=== PATIENT | female | born 1940 | race Caucasian/White ===

== ENCOUNTER 2019-12-17 13:51 | Inpatient (IN) | payer MEDICARE, OTHER ==
[2019-12-17] MEDS ORDERED: Ondansetron 4 MG Tab.DIS PO ONE (14:32)
--- NOTE | 2019-12-17 14:53 | EDM.PDOC ---
<Christiano George - Last Filed: 12/17/19 21:38> ED HPI GENERAL MEDICAL PROBLEM - General Chief Complaint: Abdominal Pain Stated Complaint: ABDOMINAL PAIN/DIARRHEA Time Seen by Provider: 12/17/19 14:19 - Related Data Allergies Allergy/AdvReac Type Severity Reaction Status Date / Time gatifloxacin [From Tequin] Allergy Unknown Rash Verified 12/17/19 22:52 Pzaespy-Euc-Wro Reductase AdvReac Muscle Verified 12/17/19 22:52 Inhibitor Aches Home Meds: Home Meds Latanoprost [Xalatan 0.005% Ophth Soln] 1 drop EYEBOTH BEDTIME 11/15/16 [History ] Pravastatin [Pravachol] 20 mg PO DAILY 10/16/18 [History] amLODIPine Besylate [Norvasc] 2.5 mg PO DAILY 10/16/18 [History] Esomeprazole Magnesium [Nexium] 40 mg PO DAILY 12/17/19 [History] Metoprolol Tartrate [Lopressor] 150 mg PO DAILY 12/17/19 [History] Nortriptyline 10 mg PO BEDTIME 12/17/19 [History] Rivaroxaban [Xarelto] 2.5 mg PO DAILY 12/17/19 [History] Sucralfate [Carafate] 1 gm PO QID 12/17/19 [History] Telmisartan [Micardis] 80 mg PO DAILY 12/17/19 [History] Potassium Chloride 20 meq PO DAILY #30 tablet.er 12/20/19 [Rx] Sulfamethoxazole/Trimethoprim [Bactrim Ds Tablet] 1 each PO BID #14 tablet 12/20 [Rx] Vancomycin 125 mg PO QID #40 cap 12/20/19 [Rx] metroNIDAZOLE [Metronidazole] 500 mg PO Q8H #30 tablet 12/20/19 [Rx] Course - Vital Signs Last Recorded V/S: Last Vital Signs Temp 97.5 F 12/20/19 12:20 Pulse 68 12/20/19 12:20 Resp 20 12/20/19 12:20 BP 128/91 H 12/20/19 12:20 Pulse Ox 96 12/20/19 12:20 - Orders/Labs/Meds Labs: Laboratory Tests 12/17/19 12/17/19 Range/Units 14:48 14:48 WBC 10.15 H (3.98-10.04) K/mm3 RBC 4.92 (3.98-5.22) M/mm3 Hgb 15.6 (11.2-15.7) gm/dl Hct 47.3 H (34.1-44.9) % MCV 96.1 H D (79.4-94.8) fl MCH 31.7 (25.6-32.2) pg MCHC 33.0 (32.2-35.5) g/dl RDW Std Deviation 47.2 H (36.4-46.3) fL Plt Count 167 L (182-369) K/mm3 MPV 10.3 (9.4-12.3) fl Neut % (Auto) 81.5 H (34.0-71.1) % Lymph % (Auto) 10.1 L (19.3-51.7) % [place] % (Auto) 7.4 (4.7-12.5) % Eos % (Auto) 0.5 L (0.7-5.8) Baso % (Auto) 0.3 (0.1-1.2) % Neut # (Auto) 8.27 H (1.56-6.13) K/mm3 Lymph # (Auto) 1.03 L (1.18-3.74) K/mm3 [place] # (Auto) 0.75 H (0.24-0.36) K/mm3 Eos # (Auto) 0.05 (0.04-0.36) K/mm3 Baso # (Auto) 0.03 (0.01-0.08) K/mm3 Sodium 138 (136-145) mEq/L Potassium 3.4 L (3.5-5.1) mEq/L Chloride 99 (98-107) mEq/L Carbon Dioxide 28 (21-32) mEq/L Anion Gap 14.4 (5-15) BUN 19 H (7-18) mg/dL Creatinine 1.3 H (0.55-1.02) mg/dL Est Cr Clr Drug Dosing 31.77 mL/min Estimated GFR (MDRD) 39 (>60) mL/min BUN/Creatinine Ratio 14.6 (14-18) Glucose 127 H (83-115) mg/dL Calcium 9.0 (8.5-10.1) mg/dL Total Bilirubin 0.8 (0.2-1.0) mg/dL AST 14 L (15-37) U/L ALT 22 (14-59) U/L Alkaline Phosphatase 99 (46-116) U/L Total Protein 7.1 (6.4-8.2) g/dl Albumin 3.1 L (3.4-5.0) g/dl Globulin 4.0 gm/dL Albumin/Globulin Ratio 0.8 L (1-2) Meds: Medications Discontinued Medications Generic Name Dose Route Start Last Admin Trade Name Freq PRN Reason Stop Dose Admin Acetaminophen 650 mg 12/17/19 23:04 Tylenol PO Q4H PRN Pain (Mild 1-3)/fever Hydrocodone Bitart/Acetaminophen 1 tab 12/17/19 23:04 12/19/19 21:01 [place] 325-5 Mg PO 1 tab Q4H PRN Administration Pain (moderate 4-6) Amlodipine Besylate 2.5 mg 12/18/19 09:00 12/20/19 08:25 Norvasc PO 2.5 mg DAILY GI Administration Diatrizoate Meglum/Diatrizoate Sod 120 ml 12/17/19 20:03 12/17/19 20:44 Gastrografin 37% PO 12/17/19 20:04 90 ml ONETIME ONE Administration Enoxaparin Sodium 30 mg 12/19/19 09:00 12/19/19 09:05 Lovenox SUBCUT 30 mg Q24H GI Administration Hydromorphone HCl 0.25 mg 12/17/19 17:19 12/17/19 18:21 Dilaudid IVPUSH 12/17/19 17:20 0.25 mg ONETIME ONE Administration Sodium Chloride 1,000 mls @ 999 mls/hr 12/17/19 17:30 12/17/19 18:22 Normal Saline IV 999 mls/hr ONETIME GI Administration Sodium Chloride 100 mls @ 75 mls/hr 12/17/19 20:15 12/17/19 20:44 Normal Saline IV 75 mls/hr ASDIRECTED GI Administration Ceftriaxone Sodium 2 gm/ 100 mls @ 200 mls/hr 12/17/19 21:34 12/17/19 22:53 Sodium Chloride IV 12/17/19 22:03 Not Given ONETIME ONE Metronidazole 500 mg/ Premix 100 mls @ 100 mls/hr 12/17/19 21:34 12/17/19 22: 18 IV 12/17/19 22:33 100 mls/hr ONETIME ONE Administration Ceftriaxone Sodium 2 gm/ 100 mls @ 200 mls/hr 12/17/19 22:12 12/17/19 22:19 Sodium Chloride IV 12/17/19 22:41 200 mls/hr STAT STA Administration Ceftriaxone Sodium 2 gm/ 100 mls @ 200 mls/hr 12/18/19 22:00 12/19/19 21:00 Sodium Chloride IV 200 mls/hr Q24H GI Administration Metronidazole 500 mg/ Premix 100 mls @ 100 mls/hr 12/18/19 06:00 12/20/19 13: 17 IV 100 mls/hr Q8H GI Administration Potassium Chloride 10 meq/ 100 mls @ 100 mls/hr 12/18/19 09:00 12/18/19 14:18 Premix IV 12/18/19 12:59 100 mls/hr Q1H GI Administration Sodium Chloride 1,000 mls @ 50 mls/hr 12/18/19 11:00 12/18/19 10:56 Normal Saline IV 50 mls/hr ASDIRECTED GI Administration Potassium Chloride 10 meq/ 100 mls @ 100 mls/hr 12/19/19 09:00 12/19/19 10:43 Premix IV 12/19/19 10:59 100 mls/hr Q1H GI Administration Magnesium Sulfate 2 gm/ Premix 50 mls @ 25 mls/hr 12/19/19 08:45 12/19/19 09: 00 IV 12/19/19 09:44 25 mls/hr Q1H GI Administration Iopamidol 100 ml 12/17/19 20:03 12/17/19 20:44 Isovue-300 (61%) IVPUSH 12/17/19 20:04 65 ml ONETIME ONE Administration Latanoprost 0 ml 12/18/19 21:00 12/19/19 21:01 Xalatan 0.005% Ophth Soln EYEBOTH 1 drop BEDTIME GI Administration Losartan Potassium 100 mg 12/18/19 09:00 12/18/19 08:12 Cozaar PO 100 mg DAILY GI Administration Melatonin 9 mg 12/17/19 23:07 Melatonin PO BEDTIME PRN Insomnia Metoprolol Tartrate 150 mg 12/18/19 09:00 12/20/19 08:25 Lopressor PO 150 mg DAILY GI Administration Miscellaneous Information 0 ea 12/19/19 09:00 12/20/19 08:27 Remove Patch TRDERM Not Given DAILY GI Nicotine 14 mg 12/18/19 15:15 12/20/19 08:27 Habitrol TRDERM Not Given DAILY GI Nortriptyline HCl 10 mg 12/18/19 21:00 12/19/19 21:01 Nortriptyline PO 10 mg BEDTIME GI Administration Ondansetron HCl 4 mg 12/17/19 14:32 12/17/19 15:21 Zofran Odt PO 12/17/19 14:33 Not Given ONETIME ONE Ondansetron HCl 4 mg 12/17/19 17:18 12/17/19 18:23 Zofran IVPUSH 12/17/19 17:19 4 mg ONETIME ONE Administration Ondansetron HCl 4 mg 12/17/19 23:04 Zofran IV Q4H PRN Nausea/Vomiting Pantoprazole Sodium 40 mg 12/18/19 09:00 12/20/19 08:25 Protonix PO 40 mg DAILY GI Administration Rivaroxaban [Xarelto 0 each 12/18/19 16:00 12/20/19 15:05 ] 2.5 Mg PO Not Given DAILY@1400 [facility] Potassium Chloride 40 meq 12/18/19 08:30 12/18/19 08:11 Klor-Con M20 PO 12/18/19 08:31 40 meq ONETIME ONE Administration Sodium Chloride 10 ml 12/17/19 17:18 12/17/19 18:22 Saline Flush FLUSH 10 ml ASDIRECTED PRN Administration Keep Vein Open Sodium Chloride 10 ml 12/17/19 20:03 12/17/19 20:44 Saline Flush FLUSH 10 ml ONETIME PRN Administration IV FLUSH Sucralfate 1 gm 12/18/19 09:00 12/20/19 12:17 Carafate PO 1 gm QID GI Administration Vancomycin HCl 125 mg 12/18/19 17:00 12/20/19 12:17 Vancomycin PO 12/28/19 17:01 125 mg QID GI Administration - Re-Assessments/Exams Free Text/Narrative Re-Assessment/Exam: 12/17/19 21:[address] Monahan this evening. Awaiting CT to be done. This looks like she is got mild developing diverticulitis with in the descending colon near the junction of the sigmoid. Plain films done earlier were suggestive of an ileus. Case discussed with Dr. [place] who is kind enough to accept the patient the patient will be started on IV Rocephin and Flagyl. Departure - Departure Time of Disposition: 21:42 Disposition: Admitted As Inpatient 64 Clinical Impression: Diverticulitis Diarrhea Qualifiers: Diarrhea type: unspecified type Qualified Code(s): R19.7 - Diarrhea, unspecified - Discharge Information Sepsis Event Note - Focused Exam Date Exam was Performed: 12/17/19 Time Exam was Performed: 21:38 <Sae Monahan - Last Filed: 12/22/19 12:44> ED HPI GENERAL MEDICAL PROBLEM - General Source of Information: Reports: Patient, Family, RN Notes Reviewed - History of Present Illness INITIAL COMMENTS - FREE TEXT/NARRATIVE: 79-year-old female has been having quite severe watery diarrhea yesterday and today. Had this off and on for several weeks but yesterday and today has been much worse. Her appetite is diminished but she has been eating in spite of that. There's been no vomiting. She does get intermittent abdominal discomfort upper and lower abdomen. No chest pain or difficulty breathing. She states she has been drinking plenty of water to maintain hydration and had some "red eye last evening to help her sleep" no melena or hematochezia. She is on Pradaxa in addition to her other meds with history of atrial fib. 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; red eye whiskey Abdomen Pain Score (Numeric/FACES): 5 Past Medical History HEENT History: Reports: Glaucoma, Other (See Below) Other HEENT History: weras glasses, dentures Cardiovascular History: Reports: Afib, CAD, High Cholesterol, Hypertension, Other (See Below) Other Cardiovascular History: palpitations Respiratory History: Reports: Other (See Below) Other Respiratory History: lung nodule Gastrointestinal History: Reports: Diverticulosis, Hemorrhoids, Hepatitis, Hiatal Hernia, Other (See Below) Other Gastrointestinal History: diarrhea, hepatomegaly, esophagitis, duodenitis , barretts esphogus, diverticulitis, diverticulosis BUILDING CERTIFIER History: Reports: Other (See Below) Other BUILDING CERTIFIER History: ovarian tumor Musculoskeletal History: Reports: None Neurological History: Reports: None Psychiatric History: Reports: None Endocrine/Metabolic History: Reports: None Hematologic History: Reports: None Immunologic History: Reports: None Oncologic (Cancer) History: Reports: Bladder Dermatologic History: Reports: None - Past Surgical History Head Surgeries/Procedures: Reports: None Respiratory Surgical History: Reports: None GI Surgical History: Reports: Cholecystectomy, Colonoscopy, EGD Female Surgical History: Reports: Section, Hysterectomy, Tubal Ligation Endocrine Surgical History: Reports: None Neurological Surgical History: Reports: None Musculoskeletal Surgical History: Reports: None Oncologic Surgical History: Reports: None Dermatological Surgical History: Reports: None Social & Family History - Tobacco Use Smoking Status *Q: Current Every Day Smoker Years of Tobacco use: 50 Packs/Tins Daily: 0.5 - Caffeine Use Caffeine Use: Reports: Coffee - Recreational Drug Use Recreational Drug Use: No ED ROS GENERAL - Review of Systems Review Of Systems: See Below Constitutional: Denies: Fever, Chills, Diaphoresis HEENT: Reports: No Symptoms Respiratory: Denies: Shortness of Breath Cardiovascular: Denies: Chest Pain GI/Abdominal: Reports: Abdominal Pain, Diarrhea (Occasional mild Requip watery for the past 2 days), Nausea, Vomiting. Denies: Hematochezia, Melena Musculoskeletal: Denies: Back Pain Skin: Reports: No Symptoms Neurological: Reports: Dizziness. Denies: Trouble Speaking (Mild), Difficulty Walking ED EXAM, NEURO - Physical Exam Exam: See Below General Appearance: Alert, No Apparent Distress Nose: Normal Inspection Throat/Mouth: Other Head Exam: Atraumatic (Mucosa mildly dry). No: Facial Swelling Neck: Supple, Full Range of Motion Respiratory/Chest: No Respiratory Distress, Lungs Clear, Normal Breath Sounds Cardiovascular: Regular Rate, Rhythm GI/Abdominal: Soft, Non-Tender (At time of initial exam). No: Guarding, Rebound Neurological: Alert, No Motor/Sensory Deficits Extremities: Normal Inspection, Normal Range of Motion Skin Exam: Warm, Dry, Normal Color Course - Orders/Labs/Meds Labs: Laboratory Tests 12/17/19 12/17/19 Range/Units 14:48 14:48 WBC 10.15 H (3.98-10.04) K/mm3 RBC 4.92 (3.98-5.22) M/mm3 Hgb 15.6 (11.2-15.7) gm/dl Hct 47.3 H (34.1-44.9) % MCV 96.1 H D (79.4-94.8) fl MCH 31.7 (25.6-32.2) pg MCHC 33.0 (32.2-35.5) g/dl RDW Std Deviation 47.2 H (36.4-46.3) fL Plt Count 167 L (182-369) K/mm3 MPV 10.3 (9.4-12.3) fl Neut % (Auto) 81.5 H (34.0-71.1) % Lymph % (Auto) 10.1 L (19.3-51.7) % [place] % (Auto) 7.4 (4.7-12.5) % Eos % (Auto) 0.5 L (0.7-5.8) Baso % (Auto) 0.3 (0.1-1.2) % Neut # (Auto) 8.27 H (1.56-6.13) K/mm3 Lymph # (Auto) 1.03 L (1.18-3.74) K/mm3 [place] # (Auto) 0.75 H (0.24-0.36) K/mm3 Eos # (Auto) 0.05 (0.04-0.36) K/mm3 Baso # (Auto) 0.03 (0.01-0.08) K/mm3 Sodium 138 (136-145) mEq/L Potassium 3.4 L (3.5-5.1) mEq/L Chloride 99 (98-107) mEq/L Carbon Dioxide 28 (21-32) mEq/L Anion Gap 14.4 (5-15) BUN 19 H (7-18) mg/dL Creatinine 1.3 H (0.55-1.02) mg/dL Est Cr Clr Drug Dosing 31.77 mL/min Estimated GFR (MDRD) 39 (>60) mL/min BUN/Creatinine Ratio 14.6 (14-18) Glucose 127 H (83-115) mg/dL Calcium 9.0 (8.5-10.1) mg/dL Total Bilirubin 0.8 (0.2-1.0) mg/dL AST 14 L (15-37) U/L ALT 22 (14-59) U/L Alkaline Phosphatase 99 (46-116) U/L Total Protein 7.1 (6.4-8.2) g/dl Albumin 3.1 L (3.4-5.0) g/dl Globulin 4.0 gm/dL Albumin/Globulin Ratio 0.8 L (1-2) - Re-Assessments/Exams Free Text/Narrative Re-Assessment/Exam: 12/17/19 19:20. At time of initial exam patient did not appear that ill. The history was that of severe frequent watery diarrhea yesterday and today. She down Played any major discomfort. She states she had been eating small amounts of food but then she would have more diarrhea. Labs came back relatively okay. Upright of the abdomen and that however did show multiple air-fluid levels. On reexam she was now having more LLQ pain and tenderness. With that an IV was ordered, she was given 1 L of IV fluid, IV Zofran, 0.25 mg IV Dilaudid. When back to check on her short time ago thinking she would be much better she is having more pain and tenderness left lower quadrant. She states she does have hx of diverticulitis. She states this feels similar. CT of abd/pelvis ordered to be done with IV and oral contrast. It is now past change of shift, will transfer care to Dr. George. Sepsis Event Note - Evaluation Sepsis Screening Result: No Definite Risk - Focused Exam Date Exam was Performed: 12/22/19 Time Exam was Performed: 12:43
[2019-12-17] MEDS ORDERED: Sodium Chloride 0.9% 10 ML Syringe FLUSH PRN ×2 (17:18→20:03)
[2019-12-17] MEDS ORDERED: Ondansetron 4 MG/2 ML SDV IVPUSH ONE (17:18)
[2019-12-17] MEDS ORDERED: HYDROmorphone 0.5 MG/0.5 ML Syringe IVPUSH ONE (17:19)
[2019-12-17] MEDS ORDERED: Sodium Chloride 0.9% 1,000 ML IV SCH (17:30)
--- NOTE | 2019-12-17 17:30 | CR ---
Abdomen: Supine and upright views the abdomen were obtained. Comparison: No previous abdominal x-ray. Scattered gas within small bowel and colon is seen. Air-fluid levels noted within the right colon. These findings can be seen normally. Calcifications are seen within the pelvis compatible phleboliths. Vascular calcification is noted. No free air is seen. Previous cholecystectomy is noted. Bony structures are within normal limits for patient's age. Impression: 1. Mild increased gas within small bowel and colon. This does not appear to be obstructive and may represent excessive swallowed air or a mild ileus. 2. Other findings believed to be incidental as described above. Diagnostic code #2 Study was dictated in [place] Standard Time
[2019-12-17] MEDS ORDERED: Iopamidol 612 MG/ML 100 ML Bottle IVPUSH ONE (20:03)
[2019-12-17] MEDS ORDERED: Diatrizoate Meglumine/Diatrizoate Sodium 37% 120 ML Bottle PO ONE (20:03)
[2019-12-17] MEDS ORDERED: Sodium Chloride 0.9% 100 ML IV SCH (20:15)
--- NOTE | 2019-12-17 21:17 | CT ---
CT abdomen and pelvis Technique: Multiple axial sections were obtained from above the dome of the diaphragm inferiorly through the pubic symphysis. Intravenous and oral contrast was utilized. Delayed images were also obtained through the bladder. Comparison: Prior CT abdomen and pelvis exam of 06/18/19. Findings: Mild inflammatory change is suggested around the descending colon near the junction to the sigmoid colon. This is in an area of diverticulosis and findings are felt compatible with mild diverticulitis. Other diverticuli are seen within the descending and sigmoid colon which show no additional inflammatory change. Visualized lung bases show nothing acute. Liver contains no focal abnormality. Spleen shows no focal abnormality. Adrenal glands show no nodule. Kidneys show contrast enhancement without hydronephrosis or mass. Pancreas shows no focal abnormality. Surgical clips are seen from prior cholecystectomy. Minimal intrahepatic biliary duct dilatation is seen which is felt to relate to the prior cholecystectomy. Aorta shows atherosclerotic calcification without aneurysmal dilatation. Small hiatal hernia is noted. No retroperitoneal adenopathy or mesenteric abnormalities are seen. No pelvic mass or adenopathy is identified. Appendix is not visualized with certainty. Bone window settings were reviewed which shows mild degenerative change scattered within the spine. Several mild endplate concavities are seen within the thoracic spine which are old. Impression: 1. Findings which are felt compatible with mild diverticulitis within the descending colon near the junction to the sigmoid colon. 2. Other findings as noted above which are felt to be nonacute and incidental. Diagnostic code #3 Study was dictated in [place] Standard Time
[2019-12-17] MEDS ORDERED: metroNIDAZOLE/Normal Saline 500 MG in Premix Bag 1 BAG IV ONE (21:34)
[2019-12-17] MEDS ORDERED: cefTRIAXone 2 GM in Sodium Chloride 0.9% 100 ML IV ONE (21:34)
[2019-12-17] MEDS ORDERED: cefTRIAXone 2 GM in Sodium Chloride 0.9% 100 ML IV STA (22:12)
[2019-12-17] MEDS ORDERED: Acetaminophen 325 MG Tab PO PRN (23:04)
[2019-12-17] MEDS ORDERED: Ondansetron 4 MG/2 ML SDV IV PRN (23:04)
[2019-12-17] MEDS ORDERED: Melatonin 3 MG Tab PO PRN (23:07)
[2019-12-18] MEDS: metroNIDAZOLE/Normal Saline 500 MG in Premix Bag 1 BAG IV SCH ×3 (05:52→21:33)
[2019-12-18] MEDS ORDERED: Potassium Chloride 10 MEQ in Premix Bag 1 BAG IV SCH (07:15)
--- NOTE | 2019-12-18 07:56 | PCM.HP.2 ---
Addendum entered and electronically signed by Jefe William PA-C 12/18/19 15:27 : C. difficile returned positive. Will start vancomycin. Original Note: H&P History of Present Illness - General Date of Service: 12/18/19 Admit Problem/Dx: Admission Diagnosis/Problem Admission Diagnosis/Problem Diverticulitis Source of Information: Patient, Old Records, Provider, RN, RN Notes Reviewed History Limitations: Reports: No Limitations - History of Present Illness Initial Comments - Free Text/Narative: Brisa Bolanos is an 79-year-old female who presented to ED in the afternoon of 12/17/2019 with watery diarrhea which has increased in severity over the past few days. She reports she has been having these symptoms for several weeks but as noted it has gotten worse. States her appetite has been lacking but she has been attempting to eat regardless. Denies any nausea or vomiting. Reports upper and lower abdominal discomfort but denies chest pain, difficulty breathing, melena, hematochezia. States has been drinking lots of water and did have some alcohol last night to try to help her sleep. In the ED temp was 36.9 Celsius. Pulse 89. Respirations 20. Blood pressure 146/97. Pulse ox 97%. Labs were obtained showing a mild leukocytosis at 10.15. Hemoglobin is good at 15.6. Hematocrit good at 47.3. She is macrocytic. Platelets are low at 106 7000. Neutrophils are elevated at 81.5%. Sodium is on the low end of normal at 138. Potassium is just slightly low at 3.4. Chloride 99. Carbon oxide 28. Anion gap is good at 14.4. BUN is high at 19. Creatinine high at 1.3. GFR is low at 39. Glucose is high at 127. Calcium 9.0. Bilirubin 0.8. AST is 14, ALT 22, alkaline phosphatase 99. Albumin is low at 3.1. Abdominal x-ray is obtained and interpreted by Dr. Vo as "1. Mild increased gas within small bowel and colon. This does not appear to be obstructive and may represent excessive swallowed air or mild ileus. 2. Other findings believed to be incidental as described above." Abdominal CT is been obtained and interpreted by Dr. Vo as "1. Findings which are felt compatible with mild diverticulosis within the descending colon near the junction of the sigmoid colon. 2. Other findings as noted above which are felt to be nonacute and incidental. " She was given a 1 L fluid bolus and started on 2 g IV ceftriaxone and 500 mg metronidazole. She is also given 4 mg IV push Zofran and 0.25 mg Dilaudid for pain. She carries a history of glaucoma, A. fib, CAD, HLD, hypertension, palpitations , lung nodule, diverticulosis, hemorrhoids, hepatitis, hiatal hernia, diarrhea, hepatomegaly, esophagitis, duodenitis, Bradford's esophagus, diverticulitis, diverticulosis, ovarian tumor, bladder cancer. She is a daily smoker. She is a DNR/DNI. Her PCP is Dr. Chinchilla. She is subsequently admitted to the medical floor on telemetry for management of her diverticulitis and hypokalemia. Abdomen Pain Score (Numeric/FACES): 5 - Related Data Allergies/Adverse Reactions: Allergies Allergy/AdvReac Type Severity Reaction Status Date / Time gatifloxacin [From Tequin] Allergy Unknown Rash Verified 12/17/19 22:52 Ackflqw-Yja-Kyi Reductase AdvReac Muscle Verified 12/17/19 22:52 Inhibitor Aches Home Medications: Home Meds Latanoprost [Xalatan 0.005% Ophth Soln] 1 drop EYEBOTH BEDTIME 11/15/16 [History ] Pravastatin [Pravachol] 20 mg PO DAILY 10/16/18 [History] amLODIPine Besylate [Norvasc] 2.5 mg PO DAILY 10/16/18 [History] Esomeprazole Magnesium [Nexium] 40 mg PO DAILY 12/17/19 [History] Metoprolol Tartrate [Lopressor] 150 mg PO DAILY 12/17/19 [History] Nortriptyline 10 mg PO BEDTIME 12/17/19 [History] Rivaroxaban [Xarelto] 2.5 mg PO DAILY 12/17/19 [History] Sucralfate [Carafate] 1 gm PO QID 12/17/19 [History] Telmisartan [Micardis] 80 mg PO DAILY 12/17/19 [History] Potassium Chloride [Klor-Con M20] 20 meq PO DAILY 12/18/19 [History] Past Medical History HEENT History: Reports: Glaucoma, Other (See Below) Other HEENT History: wears glasses, dentures Cardiovascular History: Reports: Afib, CAD, High Cholesterol, Hypertension, Other (See Below) Other Cardiovascular History: palpitations Respiratory History: Reports: Other (See Below) Other Respiratory History: lung nodule Gastrointestinal History: Reports: Diverticulosis, Hemorrhoids, Hepatitis, Hiatal Hernia, Other (See Below) Other Gastrointestinal History: diarrhea, hepatomegaly, esophagitis, duodenitis , barretts esphogus, diverticulitis Genitourinary History: Reports: Other (See Below) Other Genitourinary History: bladder cancer 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 History: Reports: Other (See Below) Other OB/BYN History: ovarian tumor Musculoskeletal History: Reports: None Neurological History: Reports: None Psychiatric History: Reports: None Endocrine/Metabolic History: Reports: None Hematologic History: Reports: None Immunologic History: Reports: None Oncologic (Cancer) History: Reports: Bladder Dermatologic History: Reports: None - Infectious Disease History Infectious Disease History: Reports: Hepatitis B - Past Surgical History Head Surgeries/Procedures: Reports: None HEENT Surgical History: Reports: None Cardiovascular Surgical History: Reports: None Respiratory Surgical History: Reports: None GI Surgical History: Reports: Appendectomy, Cholecystectomy, Colonoscopy, EGD Female Surgical History: Reports: Section, Hysterectomy, Tubal Ligation Endocrine Surgical History: Reports: None Neurological Surgical History: Reports: None Musculoskeletal Surgical History: Reports: None Oncologic Surgical History: Reports: None Dermatological Surgical History: Reports: None Social & Family History - Family History Family Medical History: Noncontributory - Tobacco Use Smoking Status *Q: Current Every Day Smoker Years of Tobacco use: 50 Packs/Tins Daily: 0.5 Used Tobacco, but Quit: No Tobacco Use Comment: Patient refused nicotine patch - Caffeine Use Caffeine Use: Reports: Coffee - Recreational Drug Use Recreational Drug Use: No H&P Review of Systems - Review of Systems: Review Of Systems: See Below General: Reports: No Symptoms. Denies: Fever, Chills, Malaise, Weakness, Fatigue HEENT: Reports: No Symptoms. Denies: Headaches, Rhinitis Pulmonary: Reports: No Symptoms. Denies: Shortness of Breath, Wheezing, Cough, Sputum Cardiovascular: Reports: No Symptoms. Denies: Chest Pain, Palpitations, Dyspnea on Exertion Gastrointestinal: Reports: Abdominal Pain (LLQ ), Diarrhea (Reports diarrhea for past few weeks. Had oral contrast prior to admission as well. ). Denies: Constipation, Distension, Hematemesis, Hematochezia, Melena, Nausea, Vomiting Genitourinary: Reports: No Symptoms. Denies: Dysuria, Pain, Urgency, Incontinence, Retention Musculoskeletal: Reports: Shoulder Pain (Chronic right - warming pack ordered ) Skin: Reports: No Symptoms. Denies: Cyanosis Psychiatric: Reports: No Symptoms. Denies: Confusion Neurological: Reports: No Symptoms. Denies: Pre-Existing Deficit Hematologic/Lymphatic: Reports: No Symptoms Immunologic: Reports: No Symptoms Exam - Exam Exam: See Below - Vital Signs Vital Signs: Last Vital Signs Temp 99.0 F 12/18/19 05:49 Pulse 87 12/18/19 05:49 Resp 20 12/18/19 05:49 BP 124/92 H 12/18/19 05:49 Pulse Ox 91 L 12/18/19 05:49 Weight: 173 lb 9.6 oz - Exam Quality Assessment: DVT Prophylaxis. No: Supplemental Oxygen, Urinary Catheter General: Alert, Oriented, Cooperative. No: Mild Distress HEENT: Conjunctiva Clear, EACs Clear, Hearing Intact, Mucosa Moist & [place], Nares Patent, Posterior Pharynx Clear Neck: Supple, Trachea Midline Lungs: Clear to Auscultation, Normal Respiratory Effort Cardiovascular: Regular Rate, Irregular Rhythm (A-fib) GI/Abdominal Exam: Normal Bowel Sounds, Soft, Non-Tender, No Distention (Female) Exam: Deferred Rectal (Female) Exam: Deferred Back Exam: Normal Inspection, Full Range of Motion Extremities: Normal Inspection, Normal Range of Motion, Non-Tender, No Pedal Edema, Normal Capillary Refill Peripheral Pulses: 2+: Radial (L), Radial (R), Dorsalis Pedis (L), Dorsalis Pedis (R) Skin: Warm, Dry, Intact Neurological: Cranial Nerves Intact (Grossly ) Neuro Extensive - Mental Status: Alert, Oriented x3, Normal Mood/Affect - Patient Data Lab Results Last 24 hrs: Laboratory Results - last 24 hr 12/17/19 12/17/19 12/18/19 Range/Units 14:48 14:48 05:45 WBC 10.15 H 6.99 (3.98-10.04) K/mm3 RBC 4.92 4.39 (3.98-5.22) M/mm3 Hgb 15.6 14.0 D (11.2-15.7) gm/dl Hct 47.3 H 42.1 (34.1-44.9) % MCV 96.1 H D 95.9 H (79.4-94.8) fl MCH 31.7 31.9 (25.6-32.2) pg MCHC 33.0 33.3 (32.2-35.5) g/dl RDW Std Deviation 47.2 H 46.1 (36.4-46.3) fL Plt Count 167 L 136 L (182-369) K/mm3 MPV 10.3 10.3 (9.4-12.3) fl Neut % (Auto) 81.5 H 72.0 H (34.0-71.1) % Lymph % (Auto) 10.1 L 17.7 L (19.3-51.7) % [place] % (Auto) 7.4 9.0 (4.7-12.5) % Eos % (Auto) 0.5 L 0.7 (0.7-5.8) Baso % (Auto) 0.3 0.3 (0.1-1.2) % Neut # (Auto) 8.27 H 5.03 (1.56-6.13) K/mm3 Lymph # (Auto) 1.03 L 1.24 (1.18-3.74) K/mm3 [place] # (Auto) 0.75 H 0.63 H (0.24-0.36) K/mm3 Eos # (Auto) 0.05 0.05 (0.04-0.36) K/mm3 Baso # (Auto) 0.03 0.02 (0.01-0.08) K/mm3 Sodium 138 (136-145) mEq/L Potassium 3.4 L (3.5-5.1) mEq/L Chloride 99 (98-107) mEq/L Carbon Dioxide 28 (21-32) mEq/L Anion Gap 14.4 (5-15) BUN 19 H (7-18) mg/dL Creatinine 1.3 H (0.55-1.02) mg/dL Est Cr Clr Drug Dosing 31.77 mL/min Estimated GFR (MDRD) 39 (>60) mL/min BUN/Creatinine Ratio 14.6 (14-18) Glucose 127 H (83-115) mg/dL Calcium 9.0 (8.5-10.1) mg/dL Magnesium (1.8-2.4) mg/dl Total Bilirubin 0.8 (0.2-1.0) mg/dL AST 14 L (15-37) U/L ALT 22 (14-59) U/L Alkaline Phosphatase 99 (46-116) U/L Total Protein 7.1 (6.4-8.2) g/dl Albumin 3.1 L (3.4-5.0) g/dl Globulin 4.0 gm/dL Albumin/Globulin Ratio 0.8 L (1-2) 12/18/19 Range/Units 05:45 WBC (3.98-10.04) K/mm3 RBC (3.98-5.22) M/mm3 Hgb (11.2-15.7) gm/dl Hct (34.1-44.9) % MCV (79.4-94.8) fl MCH (25.6-32.2) pg MCHC (32.2-35.5) g/dl RDW Std Deviation (36.4-46.3) fL Plt Count (182-369) K/mm3 MPV (9.4-12.3) fl Neut % (Auto) (34.0-71.1) % Lymph % (Auto) (19.3-51.7) % [place] % (Auto) (4.7-12.5) % Eos % (Auto) (0.7-5.8) Baso % (Auto) (0.1-1.2) % Neut # (Auto) (1.56-6.13) K/mm3 Lymph # (Auto) (1.18-3.74) K/mm3 [place] # (Auto) (0.24-0.36) K/mm3 Eos # (Auto) (0.04-0.36) K/mm3 Baso # (Auto) (0.01-0.08) K/mm3 Sodium 139 (136-145) mEq/L Potassium 2.9 L (3.5-5.1) mEq/L Chloride 102 (98-107) mEq/L Carbon Dioxide 27 (21-32) mEq/L Anion Gap 12.9 (5-15) BUN 13 (7-18) mg/dL Creatinine 0.8 (0.55-1.02) mg/dL Est Cr Clr Drug Dosing 51.63 mL/min Estimated GFR (MDRD) > 60 (>60) mL/min BUN/Creatinine Ratio 16.3 (14-18) Glucose 97 (83-115) mg/dL Calcium 8.8 (8.5-10.1) mg/dL Magnesium 1.8 (1.8-2.4) mg/dl Total Bilirubin 0.6 (0.2-1.0) mg/dL AST 15 (15-37) U/L ALT 15 (14-59) U/L Alkaline Phosphatase 83 (46-116) U/L Total Protein 6.5 (6.4-8.2) g/dl Albumin 2.8 L (3.4-5.0) g/dl Globulin 3.7 gm/dL Albumin/Globulin Ratio 0.8 L (1-2) Result Diagrams: 12/18/19 05:45 12/18/19 05:45 Sepsis Event Note - Evaluation Sepsis Screening Result: No Definite Risk - Focused Exam Vital Signs: Vital Signs Temp Pulse Resp BP Pulse Ox 12/18/19 05:49 99.0 F 87 20 124/92 H 91 L 12/17/19 22:32 97.9 F 82 18 120/67 96 Date Exam was Performed: 12/18/19 Time Exam was Performed: 14:59 - Problem List (1) Diarrhea SNOMED Code(s): 85407153 ICD Code: R19.7 - DIARRHEA, UNSPECIFIED Status: Acute Priority: High Current Visit: Yes Qualifiers: Diarrhea type: unspecified type Qualified Code(s): R19.7 - Diarrhea, unspecified (2) Diverticulitis SNOMED Code(s): 175526606 ICD Code: K57.92 - DVTRCLI OF INTEST, PART UNSP, W/O PERF OR ABSCESS W/O BLEED Status: Acute Priority: High Current Visit: Yes (3) Abdominal pain SNOMED Code(s): 84590977 ICD Code: R10.9 - UNSPECIFIED ABDOMINAL PAIN Status: Acute Priority: High Current Visit: Yes Qualifiers: Abdominal location: left lower quadrant Qualified Code(s): R10.32 - Left lower quadrant pain (4) Bradford's esophagus with dysplasia, unspecified SNOMED Code(s): 8350012953438991 ICD Code: K22.719 - BRADFORD'S ESOPHAGUS WITH DYSPLASIA, UNSPECIFIED Status : Chronic Priority: Low Current Visit: No (5) A-fib SNOMED Code(s): 29778148 ICD Code: I48.91 - UNSPECIFIED ATRIAL FIBRILLATION Status: Chronic Priority: Medium Current Visit: Yes Qualifiers: Atrial fibrillation type: unspecified persistent Qualified Code(s): I48.19 - Other persistent atrial fibrillation; I48.1 - Persistent atrial fibrillation (6) CAD (coronary artery disease) SNOMED Code(s): 46142566 ICD Code: I25.10 - ATHSCL HEART DISEASE OF [place] CORONARY ARTERY W/O ANG PCTRS Status: Chronic Priority: Medium Current Visit: No Qualifiers: Coronary Disease-Associated Artery/Lesion type: [place] artery [place] vs. transplanted heart: [place] heart Associated angina: angina presence unspecified Qualified Code(s): I25.10 - Atherosclerotic heart disease of [place] coronary artery without angina pectoris (7) HLD (hyperlipidemia) SNOMED Code(s): 89111876 ICD Code: E78.5 - HYPERLIPIDEMIA, UNSPECIFIED Status: Chronic Priority: Low Current Visit: No Qualifiers: Hyperlipidemia type: unspecified Qualified Code(s): E78.5 - Hyperlipidemia , unspecified (8) HTN (hypertension) SNOMED Code(s): 49755038 ICD Code: I10 - ESSENTIAL (PRIMARY) HYPERTENSION Status: Chronic Priority : Medium Current Visit: No Qualifiers: Hypertension type: unspecified Qualified Code(s): I10 - Essential (primary ) hypertension (9) Palpitations SNOMED Code(s): 15200824 ICD Code: R00.2 - PALPITATIONS Status: Chronic Priority: Low Current Visit: No (10) Lung nodule SNOMED Code(s): 918390645 ICD Code: R91.1 - SOLITARY PULMONARY NODULE Status: Chronic Priority: Low Current Visit: No (11) Hemorrhoids SNOMED Code(s): 63224145 ICD Code: K64.9 - UNSPECIFIED HEMORRHOIDS Status: Resolved Priority: Low Current Visit: No Qualifiers: Hemorrhoid type: unspecified Qualified Code(s): K64.9 - Unspecified hemorrhoids (12) History of hepatitis SNOMED Code(s): 191729030 ICD Code: Z86.19 - PERSONAL HISTORY OF OTHER INFECTIOUS AND PARASITIC DISEASES Status: Chronic Priority: Low Current Visit: No (13) History of hiatal hernia SNOMED Code(s): 256837113 ICD Code: Z87.19 - PERSONAL HISTORY OF OTHER DISEASES OF THE DIGESTIVE SYSTEM Status: Chronic Priority: Low Current Visit: No (14) Ovarian tumor SNOMED Code(s): 566700590 ICD Code: D49.59 - NEOPLASM OF UNSPECIFIED BEHAVIOR OF OTHER ORGAN Status: Chronic Priority: Medium Current Visit: Yes (15) History of bladder cancer SNOMED Code(s): 158983011, 078845975 ICD Code: Z85.51 - PERSONAL HISTORY OF MALIGNANT NEOPLASM OF BLADDER Status : Chronic Priority: Low Current Visit: No (16) Glaucoma SNOMED Code(s): 37606840 ICD Code: H40.9 - UNSPECIFIED GLAUCOMA Status: Chronic Priority: Low Current Visit: No Qualifiers: Glaucoma type: unspecified Laterality: unspecified laterality Qualified Code(s): H40.9 - Unspecified glaucoma (17) Tobacco use SNOMED Code(s): 489003202 ICD Code: Z72.0 - TOBACCO USE Status: Chronic Priority: Medium Current Visit: Yes Problem List Initiated/Reviewed/Updated: Yes Orders Last 24hrs: Active Orders 24 hr Category Date Time Status Patient Status [ADT] Routine ADT 12/17/19 23:23 Active Oxygen Therapy [RC] PRN Care 12/17/19 23:04 Active Up With Assistance [RC] BID Care 12/17/19 23:04 Active VTE/DVT Education [RC] DAILY Care 12/17/19 23:04 Active Vital Signs [RC] Q4HR Care 12/17/19 23:04 Active Full Liquid Diet [DIET] Diet 12/18/19 Breakfast Active CBC WITH AUTO DIFF [HEME] AM Lab 12/19/19 05:11 Ordered CBC WITH AUTO DIFF [HEME] AM Lab 12/20/19 05:11 Ordered CBC WITH AUTO DIFF [HEME] AM Lab 12/21/19 05:11 Ordered COMPREHENSIVE METABOLIC PN,CMP [CHEM] AM Lab 12/19/19 05:11 Ordered COMPREHENSIVE METABOLIC PN,CMP [CHEM] AM Lab 12/20/19 05:11 Ordered COMPREHENSIVE METABOLIC PN,CMP [CHEM] AM Lab 12/21/19 05:11 Ordered MAGNESIUM [CHEM] AM Lab 12/19/19 05:11 Ordered MAGNESIUM [CHEM] AM Lab 12/20/19 05:11 Ordered MAGNESIUM [CHEM] AM Lab 12/21/19 05:11 Ordered MAGNESIUM [CHEM] AM Lab 12/22/19 05:11 Ordered Acetaminophen [Tylenol] Med 12/17/19 23:04 Active 650 mg PO Q4H PRN Acetaminophen/HYDROcodone [[place] 325-5 MG] Med 12/17/19 23:04 Active 1 tab PO Q4H PRN Latanoprost [Xalatan 0.005% Ophth Soln] Med 12/18/19 21:00 Active 0 ml EYEBOTH BEDTIME Losartan [Cozaar] Med 12/18/19 09:00 Hold 100 mg PO DAILY Melatonin Med 12/17/19 23:07 Active 9 mg PO BEDTIME PRN Metoprolol Tartrate [Lopressor] Med 12/18/19 09:00 Active 150 mg PO DAILY Nortriptyline Med 12/18/19 21:00 Active 10 mg PO BEDTIME Ondansetron [Zofran] Med 12/17/19 23:04 Active 4 mg IV Q4H PRN Pantoprazole [ProTONIX] Med 12/18/19 09:00 Active 40 mg PO DAILY Potassium Chloride [KCl 10 MEQ in Water 100 ML] 10 meq Med 12/18/19 07:15 Active Premix Bag 1 bag IV Q1H Rivaroxaban [Xarelto] Med 12/18/19 09:00 Pending 2.5 mg PO DAILY Sodium Chloride 0.9% [Saline Flush] Med 12/17/19 17:18 Active 10 ml FLUSH ASDIRECTED PRN Sodium Chloride 0.9% [Saline Flush] Med 12/17/19 20:03 Active 10 ml FLUSH ONETIME PRN Sucralfate [Carafate] Med 12/18/19 09:00 Active 1 gm PO QID amLODIPine [Norvasc] Med 12/18/19 09:00 Active 2.5 mg PO DAILY cefTRIAXone [Rocephin] 2 gm Med 12/18/19 22:00 Active Sodium Chloride 0.9% [Normal Saline] 100 ml IV Q24H metroNIDAZOLE/Normal Saline [Flagyl 500 MG in NS 100 ML Med 12/18/19 06:00 Active ] 500 mg Premix Bag 1 bag IV Q8H Peripheral IV Insertion Adult [OM.PC] Stat Oth 12/17/19 17:18 Ordered Resuscitation Status Routine Resus Stat 12/17/19 23:04 Ordered Medication Orders Acetaminophen (Tylenol) 650 mg PO Q4H PRN PRN Reason: Pain (Mild 1-3)/fever Hydrocodone Bitart/Acetaminophen ([place] 325-5 Mg) 1 tab PO Q4H PRN PRN Reason: Pain (moderate 4-6) Amlodipine Besylate (Norvasc) 2.5 mg PO DAILY [facility] Ceftriaxone Sodium 2 gm/ (Sodium Chloride) 100 mls @ 200 mls/hr IV Q24H [facility] Metronidazole 500 mg/ Premix 100 mls @ 100 mls/hr IV Q8H [facility] Last Admin: 12/18/19 05:52 Dose: 100 mls/hr Potassium Chloride 10 meq/ (Premix) 100 mls @ 100 mls/hr IV Q1H [facility] Stop: 12/18/19 13:14 Latanoprost (Xalatan 0.005% Ophth Soln) 0 ml EYEBOTH BEDTIME [facility] Losartan Potassium (Cozaar) 100 mg PO DAILY [facility] Melatonin (Melatonin) 9 mg PO BEDTIME PRN PRN Reason: Insomnia Metoprolol Tartrate (Lopressor) 150 mg PO DAILY [facility] Non-Formulary Medication (Rivaroxaban [Xarelto]) 2.5 mg PO DAILY [facility] Nortriptyline HCl (Nortriptyline) 10 mg PO BEDTIME [facility] Ondansetron HCl (Zofran) 4 mg IV Q4H PRN PRN Reason: Nausea/Vomiting Pantoprazole Sodium (Protonix) 40 mg PO DAILY [facility] Sodium Chloride (Saline Flush) 10 ml FLUSH ASDIRECTED PRN PRN Reason: Keep Vein Open Last Admin: 12/17/19 18:22 Dose: 10 ml Sodium Chloride (Saline Flush) 10 ml FLUSH ONETIME PRN PRN Reason: IV FLUSH Last Admin: 12/17/19 20:44 Dose: 10 ml Sucralfate (Carafate) 1 gm PO QID [facility] Assessment/Plan Comment:: I/P: Acute: Diverticulitis -Carries history of diverticula/diverticulitis -Reports watery diarrhea with diminished appetite and abdominal pain -Abdominal x-ray shows increased bowel gas and possible mild ileus. -Abdominal CT shows diverticulitis, mild, near the junction of descending and sigmoid colon. -Afebrile with minimal leukocytosis. -1 L IV fluid bolus given in ED. -Started on 2 g IV Rocephin and 500 mg metronidazole in ED - Continue -Ambulate -Clear liquid diet, advance as tolerated. Diarrhea -Reports worsening diarrhea over the past few days -No history of C. difficile infection -Reports diarrhea has been present for several weeks -Check C. difficile -Contact precautions until C. difficile results return -If negative C. difficile consider Imodium Hypokalemia -Potassium 3.4 in the ED; Now 2.9 -Likely worsened by diarrhea -Supplement Tobacco use disorder -Cessation counseling -Nicotine patch as ordered Right shoulder pain -Reports ongoing issue -Heat pack ordered Chronic: Glaucoma A. fib CAD HLD hypertension palpitations lung nodul diverticulosis hemorrhoids hepatitis hiatal hernia hepatomegaly esophagitis duodenitis Bradford's esophagus ovarian tumor bladder cancer Plan: Admit to medical floor on telemetry Other orders as indicated above Home medications as ordered PT/OT Routine AM labs DVT prophylaxis: Home Eliquis Code status: DNR/DNI PCP: Dr. Chinchilla - Mortality Measure Prognosis:: Good
[2019-12-18] MEDS: amLODIPine 2.5 MG Tab PO SCH (08:10)
[2019-12-18] MEDS: Acetaminophen/HYDROcodone 325-5 MG Tab PO PRN ×2 (08:11→21:34)
[2019-12-18] MEDS: Metoprolol Tartrate 50 MG Tab PO SCH (08:11)
[2019-12-18] MEDS: Sucralfate Suspension 1 GM/10 ML Cup PO SCH ×4 (08:12→21:34)
[2019-12-18] MEDS: Pantoprazole 40 MG Tab.CR PO SCH (08:12)
[2019-12-18] MEDS: Potassium Chloride 10 MEQ in Premix Bag 1 BAG IV SCH ×4 (08:15→14:18)
[2019-12-18] MEDS ORDERED: Potassium Chloride 20 MEQ Tab.ER PO ONE (08:30)
[2019-12-18] MEDS ORDERED: Losartan 100 MG Tab PO SCH (09:00)
[2019-12-18] MEDS ORDERED: Sodium Chloride 0.9% 1,000 ML IV SCH (11:00)
[2019-12-18] MEDS: Nicotine 14 MG/24 Hr Patch TRDERM SCH (15:42)
[2019-12-18] MEDS: Vancomycin 125 MG Cap PO SCH ×2 (16:14→21:33)
[2019-12-18] MEDS: RIVAROXABAN 2.5 MG PO SCH (16:14)
[2019-12-18] MEDS: cefTRIAXone 2 GM in Sodium Chloride 0.9% 100 ML IV SCH (21:32)
[2019-12-18] MEDS: Latanoprost 0.005% Ophth Soln 2.5 ML Bottle EYEBOTH SCH (21:33)
[2019-12-18] MEDS: Nortriptyline 10 MG Cap PO SCH (21:34)
[2019-12-19] MEDS: metroNIDAZOLE/Normal Saline 500 MG in Premix Bag 1 BAG IV SCH ×3 (05:19→21:00)
[2019-12-19] MEDS: amLODIPine 2.5 MG Tab PO SCH (08:13)
[2019-12-19] MEDS: Vancomycin 125 MG Cap PO SCH ×4 (08:13→21:01)
[2019-12-19] MEDS: Pantoprazole 40 MG Tab.CR PO SCH (08:13)
[2019-12-19] MEDS: Metoprolol Tartrate 50 MG Tab PO SCH (08:14)
[2019-12-19] MEDS: Nicotine 14 MG/24 Hr Patch TRDERM SCH (08:15)
[2019-12-19] MEDS: Sucralfate Suspension 1 GM/10 ML Cup PO SCH ×4 (08:15→21:01)
[2019-12-19] MEDS ORDERED: Magnesium Sulfate/Water 2 GM in Premix Bag 1 BAG IV SCH (08:45)
[2019-12-19] MEDS ORDERED: Enoxaparin 30 MG/0.3 ML Syringe SUBCUT SCH (09:00)
[2019-12-19] MEDS: Potassium Chloride 10 MEQ in Premix Bag 1 BAG IV SCH ×2 (09:01→10:43)
[2019-12-19] MEDS: RIVAROXABAN 2.5 MG PO SCH (13:35)
--- NOTE | 2019-12-19 13:58 | PCM.PN ---
- General Info Date of Service: 12/19/19 Admission Dx/Problem (Free Text): Admission Diagnosis/Problem Admission Diagnosis/Problem Diverticulitis Subjective Update: Patient states that she is doing better, did not have a bowel movement this morning, and only 1 last night. Unfortunately, she continues to have left lower quadrant pain. - Review of Systems General: Reports: No Symptoms HEENT: Reports: No Symptoms Pulmonary: Reports: No Symptoms Cardiovascular: Reports: No Symptoms Gastrointestinal: Reports: Abdominal Pain Musculoskeletal: Reports: No Symptoms - Patient Data Vitals - Most Recent: Last Vital Signs Temp 97.9 F 12/19/19 12:15 Pulse 73 12/19/19 12:15 Resp 16 12/19/19 12:15 BP 120/78 12/19/19 12:15 Pulse Ox 98 12/19/19 12:15 Weight - Most Recent: 176 lb 11.2 oz I&O - Last 24 Hours: Intake & Output 12/18/19 12/19/19 12/19/19 22:59 06:59 14:59 Intake Total 2050 1400 200 Output Total 400 1400 Balance 1650 0 200 Lab Results Last 24 Hours: Laboratory Results - last 24 hr 12/18/19 12/18/19 12/19/19 Range/Units 14:20 16:10 05:44 WBC 4.70 (3.98-10.04) K/mm3 RBC 4.23 (3.98-5.22) M/mm3 Hgb 13.3 (11.2-15.7) gm/dl Hct 41.0 (34.1-44.9) % MCV 96.9 H (79.4-94.8) fl MCH 31.4 (25.6-32.2) pg MCHC 32.4 (32.2-35.5) g/dl RDW Std Deviation 46.9 H (36.4-46.3) fL Plt Count 129 L (182-369) K/mm3 MPV 10.4 (9.4-12.3) fl Neut % (Auto) 58.7 (34.0-71.1) % Lymph % (Auto) 27.9 (19.3-51.7) % [place] % (Auto) 10.0 (4.7-12.5) % Eos % (Auto) 2.6 (0.7-5.8) Baso % (Auto) 0.6 (0.1-1.2) % Neut # (Auto) 2.76 (1.56-6.13) K/mm3 Lymph # (Auto) 1.31 (1.18-3.74) K/mm3 [place] # (Auto) 0.47 H (0.24-0.36) K/mm3 Eos # (Auto) 0.12 (0.04-0.36) K/mm3 Baso # (Auto) 0.03 (0.01-0.08) K/mm3 Sodium (136-145) mEq/L Potassium 4.6 D (3.5-5.1) mEq/L Chloride (98-107) mEq/L Carbon Dioxide (21-32) mEq/L Anion Gap (5-15) BUN (7-18) mg/dL Creatinine (0.55-1.02) mg/dL Est Cr Clr Drug Dosing mL/min Estimated GFR (MDRD) (>60) mL/min BUN/Creatinine Ratio (14-18) Glucose (83-115) mg/dL Calcium (8.5-10.1) mg/dL Magnesium (1.8-2.4) mg/dl Total Bilirubin (0.2-1.0) mg/dL AST (15-37) U/L ALT (14-59) U/L Alkaline Phosphatase (46-116) U/L Total Protein (6.4-8.2) g/dl Albumin (3.4-5.0) g/dl Globulin gm/dL Albumin/Globulin Ratio (1-2) C.difficile 027-NAP1-B1 Presumptive negative C. difficile Tox (PCR) Positive H 12/19/19 Range/Units 05:44 WBC (3.98-10.04) K/mm3 RBC (3.98-5.22) M/mm3 Hgb (11.2-15.7) gm/dl Hct (34.1-44.9) % MCV (79.4-94.8) fl MCH (25.6-32.2) pg MCHC (32.2-35.5) g/dl RDW Std Deviation (36.4-46.3) fL Plt Count (182-369) K/mm3 MPV (9.4-12.3) fl Neut % (Auto) (34.0-71.1) % Lymph % (Auto) (19.3-51.7) % [place] % (Auto) (4.7-12.5) % Eos % (Auto) (0.7-5.8) Baso % (Auto) (0.1-1.2) % Neut # (Auto) (1.56-6.13) K/mm3 Lymph # (Auto) (1.18-3.74) K/mm3 [place] # (Auto) (0.24-0.36) K/mm3 Eos # (Auto) (0.04-0.36) K/mm3 Baso # (Auto) (0.01-0.08) K/mm3 Sodium 137 (136-145) mEq/L Potassium 3.4 L (3.5-5.1) mEq/L Chloride 105 (98-107) mEq/L Carbon Dioxide 27 (21-32) mEq/L Anion Gap 8.4 (5-15) BUN 8 (7-18) mg/dL Creatinine 0.7 (0.55-1.02) mg/dL Est Cr Clr Drug Dosing 59.01 mL/min Estimated GFR (MDRD) > 60 (>60) mL/min BUN/Creatinine Ratio 11.4 L (14-18) Glucose 91 (83-115) mg/dL Calcium 8.7 (8.5-10.1) mg/dL Magnesium 1.7 L (1.8-2.4) mg/dl Total Bilirubin 0.4 (0.2-1.0) mg/dL AST 31 (15-37) U/L ALT 27 (14-59) U/L Alkaline Phosphatase 84 (46-116) U/L Total Protein 6.1 L (6.4-8.2) g/dl Albumin 2.6 L (3.4-5.0) g/dl Globulin 3.5 gm/dL Albumin/Globulin Ratio 0.7 L (1-2) C.difficile 027-NAP1-B1 C. difficile Tox (PCR) Med Orders - Current: Current Medications Acetaminophen (Tylenol) 650 mg PO Q4H PRN PRN Reason: Pain (Mild 1-3)/fever Hydrocodone Bitart/Acetaminophen ([place] 325-5 Mg) 1 tab PO Q4H PRN PRN Reason: Pain (moderate 4-6) Last Admin: 12/18/19 21:34 Dose: 1 tab Amlodipine Besylate (Norvasc) 2.5 mg PO DAILY [facility] Last Admin: 12/19/19 08:13 Dose: 2.5 mg Enoxaparin Sodium (Lovenox) 30 mg SUBCUT Q24H [facility] Last Admin: 12/19/19 09:05 Dose: 30 mg Ceftriaxone Sodium 2 gm/ (Sodium Chloride) 100 mls @ 200 mls/hr IV Q24H [facility] Last Admin: 12/18/19 21:32 Dose: 200 mls/hr Metronidazole 500 mg/ Premix 100 mls @ 100 mls/hr IV Q8H [facility] Last Admin: 12/19/19 13:31 Dose: 100 mls/hr Latanoprost (Xalatan 0.005% Oph Soln) 0 ml EYEBOTH BEDTIME [facility] Last Admin: 12/18/19 21:33 Dose: 1 drop Melatonin (Melatonin) 9 mg PO BEDTIME PRN PRN Reason: Insomnia Metoprolol Tartrate (Lopressor) 150 mg PO DAILY [facility] Last Admin: 12/19/19 08:14 Dose: 150 mg Miscellaneous Information (Remove Patch) 0 ea TRDERM DAILY [facility] Last Admin: 12/19/19 09:04 Dose: Not Given Nicotine (Habitrol) 14 mg TRDERM DAILY [facility] Last Admin: 12/19/19 08:15 Dose: Not Given Nortriptyline HCl (Nortriptyline) 10 mg PO BEDTIME [facility] Last Admin: 12/18/19 21:34 Dose: 10 mg Ondansetron HCl (Zofran) 4 mg IV Q4H PRN PRN Reason: Nausea/Vomiting Pantoprazole Sodium (Protonix) 40 mg PO DAILY [facility] Last Admin: 12/19/19 08:13 Dose: 40 mg Rivaroxaban [Xarelto (] 2.5 Mg) 0 each PO DAILY@1400 [facility] Last Admin: 12/19/19 13:35 Dose: 1 each Sodium Chloride (Saline Flush) 10 ml FLUSH ASDIRECTED PRN PRN Reason: Keep Vein Open Last Admin: 12/17/19 18:22 Dose: 10 ml Sucralfate (Carafate) 1 gm PO QID [facility] Last Admin: 12/19/19 12:15 Dose: 1 gm Vancomycin HCl (Vancomycin) 125 mg PO QID [facility] Stop: 12/28/19 17:01 Last Admin: 12/19/19 12:16 Dose: 125 mg Discontinued Medications Diatrizoate Meglum/Diatrizoate Sod (Gastrografin 37%) 120 ml PO ONETIME ONE Stop: 12/17/19 20:04 Last Admin: 12/17/19 20:44 Dose: 90 ml Hydromorphone HCl (Dilaudid) 0.25 mg IVPUSH ONETIME ONE Stop: 12/17/19 17:20 Last Admin: 12/17/19 18:21 Dose: 0.25 mg Sodium Chloride (Normal Saline) 1,000 mls @ 999 mls/hr IV ONETIME [facility] Last Admin: 12/17/19 18:22 Dose: 999 mls/hr Sodium Chloride (Normal Saline) 100 mls @ 75 mls/hr IV ASDIRECTED [facility] Last Admin: 12/17/19 20:44 Dose: 75 mls/hr Ceftriaxone Sodium 2 gm/ (Sodium Chloride) 100 mls @ 200 mls/hr IV ONETIME ONE Stop: 12/17/19 22:03 Last Admin: 12/17/19 22:53 Dose: Not Given Metronidazole 500 mg/ Premix 100 mls @ 100 mls/hr IV ONETIME ONE Stop: 12/17/19 22:33 Last Admin: 12/17/19 22:18 Dose: 100 mls/hr Ceftriaxone Sodium 2 gm/ (Sodium Chloride) 100 mls @ 200 mls/hr IV STAT STA Stop: 12/17/19 22:41 Last Admin: 12/17/19 22:19 Dose: 200 mls/hr Potassium Chloride 10 meq/ (Premix) 100 mls @ 100 mls/hr IV Q1H [facility] Stop: 12/18/19 12:59 Last Admin: 12/18/19 14:18 Dose: 100 mls/hr Sodium Chloride (Normal Saline) 1,000 mls @ 50 mls/hr IV ASDIRECTED [facility] Last Admin: 12/18/19 10:56 Dose: 50 mls/hr Potassium Chloride 10 meq/ (Premix) 100 mls @ 100 mls/hr IV Q1H [facility] Stop: 12/19/19 10:59 Last Admin: 12/19/19 10:43 Dose: 100 mls/hr Magnesium Sulfate 2 gm/ Premix 50 mls @ 25 mls/hr IV Q1H [facility] Stop: 12/19/19 09:44 Last Admin: 12/19/19 09:00 Dose: 25 mls/hr Iopamidol (Isovue-300 (61%)) 100 ml IVPUSH ONETIME ONE Stop: 12/17/19 20:04 Last Admin: 12/17/19 20:44 Dose: 65 ml Losartan Potassium (Cozaar) 100 mg PO DAILY [facility] Last Admin: 12/18/19 08:12 Dose: 100 mg Ondansetron HCl (Zofran Odt) 4 mg PO ONETIME ONE Stop: 12/17/19 14:33 Last Admin: 12/17/19 15:21 Dose: Not Given Ondansetron HCl (Zofran) 4 mg IVPUSH ONETIME ONE Stop: 12/17/19 17:19 Last Admin: 12/17/19 18:23 Dose: 4 mg Potassium Chloride (Klor-Con M20) 40 meq PO ONETIME ONE Stop: 12/18/19 08:31 Last Admin: 12/18/19 08:11 Dose: 40 meq Sodium Chloride (Saline Flush) 10 ml FLUSH ONETIME PRN PRN Reason: IV FLUSH Last Admin: 12/17/19 20:44 Dose: 10 ml - Exam General: Alert, Oriented HEENT: Pupils Equal, Mucous Membr. Moist/[place] Neck: Supple Lungs: Clear to Auscultation, Normal Respiratory Effort Cardiovascular: Regular Rate, Regular Rhythm GI/Abdominal Exam: Normal Bowel Sounds, Soft, No Organomegaly, No Distention, Tender (Left lower quadrant tenderness without guarding or rebound.) Extremities: No Pedal Edema, Normal Capillary Refill Skin: Warm, Dry, Intact Psy/Mental Status: Alert, Normal Affect, Normal Mood Sepsis Event Note - Evaluation Sepsis Screening Result: No Definite Risk - Focused Exam Vital Signs: Vital Signs Temp Pulse Resp BP Pulse Ox 12/19/19 12:15 97.9 F 73 16 120/78 98 12/19/19 08:14 90 126/75 12/19/19 08:13 126/75 12/19/19 08:10 97.9 F 90 20 126/75 96 12/19/19 05:21 97.3 F 85 16 130/86 94 L Date Exam was Performed: 12/19/19 Time Exam was Performed: 13:52 - Problem List Review Problem List Initiated/Reviewed/Updated: Yes - My Orders Last 24 Hours: My Active Orders 12/18/19 22:00 cefTRIAXone [Rocephin] 2 gm Sodium Chloride 0.9% [Normal Saline] 100 ml IV Q24H 12/19/19 09:00 Enoxaparin [Lovenox] 30 mg SUBCUT Q24H 12/19/19 Lunch Regular Diet [DIET] 12/20/19 05:11 CBC WITH AUTO DIFF [HEME] AM COMPREHENSIVE METABOLIC PN,CMP [CHEM] AM MAGNESIUM [CHEM] AM 12/21/19 05:11 CBC WITH AUTO DIFF [HEME] AM COMPREHENSIVE METABOLIC PN,CMP [CHEM] AM MAGNESIUM [CHEM] AM 12/22/19 05:11 MAGNESIUM [CHEM] AM - Plan Plan:: I/P: Acute: Diverticulitis -Carries history of diverticula/diverticulitis -Reports watery diarrhea with diminished appetite and abdominal pain -Abdominal x-ray shows increased bowel gas and possible mild ileus. -Abdominal CT shows diverticulitis, mild, near the junction of descending and sigmoid colon. -Afebrile with minimal leukocytosis. -1 L IV fluid bolus given in ED. -Started on 2 g IV Rocephin and 500 mg metronidazole in ED - Continue -Ambulate -Full liquid diet, advance as tolerated. C. Diff Diarrhea -Reports worsening diarrhea over the past few days, improving on vancomycin -Positive stool for C. difficile -Reports diarrhea has been present for several weeks -Contact precautions Hypokalemia -Potassium 3.4 -Likely worsened by diarrhea -Supplement Tobacco use disorder -Cessation counseling -Nicotine patch as ordered Right shoulder pain -Reports ongoing issue -Heat pack ordered Chronic: Glaucoma A. fib CAD HLD hypertension palpitations lung nodul diverticulosis hemorrhoids hepatitis hiatal hernia hepatomegaly esophagitis duodenitis Guzman's esophagus ovarian tumor bladder cancer Plan: Admit to medical floor on telemetry Other orders as indicated above Home medications as ordered PT/OT Routine AM labs Vancomycin PO for C. diff Continue Rocephin and Flagyl for diverticulitis DVT prophylaxis: Home Eliquis Code status: DNR/DNI PCP: Dr. Chinchilla
[2019-12-19] MEDS: cefTRIAXone 2 GM in Sodium Chloride 0.9% 100 ML IV SCH (21:00)
[2019-12-19] MEDS: Acetaminophen/HYDROcodone 325-5 MG Tab PO PRN (21:01)
[2019-12-19] MEDS: Nortriptyline 10 MG Cap PO SCH (21:01)
[2019-12-19] MEDS: Latanoprost 0.005% Ophth Soln 2.5 ML Bottle EYEBOTH SCH (21:01)
[2019-12-20] MEDS: metroNIDAZOLE/Normal Saline 500 MG in Premix Bag 1 BAG IV SCH ×2 (05:41→13:17)
[2019-12-20] MEDS: Sucralfate Suspension 1 GM/10 ML Cup PO SCH ×2 (08:24→12:17)
[2019-12-20] MEDS: Vancomycin 125 MG Cap PO SCH ×2 (08:24→12:17)
[2019-12-20] MEDS: Metoprolol Tartrate 50 MG Tab PO SCH (08:25)
[2019-12-20] MEDS: amLODIPine 2.5 MG Tab PO SCH (08:25)
[2019-12-20] MEDS: Pantoprazole 40 MG Tab.CR PO SCH (08:25)
[2019-12-20] MEDS: Nicotine 14 MG/24 Hr Patch TRDERM SCH (08:27)
[2019-12-20 12:29] VITALS: BP 128/91; PULSE 68
--- NOTE | 2019-12-20 13:27 | PCM.DCSUM1 ---
Discharge Summary - Hospital Course HPI Initial Comments: Brisa Bolanos is an 79-year-old female who presented to ED in the afternoon of 12/17/2019 with watery diarrhea which has increased in severity over the past few days. She reports she has been having these symptoms for several weeks but as noted it has gotten worse. States her appetite has been lacking but she has been attempting to eat regardless. Denies any nausea or vomiting. Reports upper and lower abdominal discomfort but denies chest pain, difficulty breathing, melena, hematochezia. States has been drinking lots of water and did have some alcohol last night to try to help her sleep. In the ED temp was 36.9 Celsius. Pulse 89. Respirations 20. Blood pressure 146/97. Pulse ox 97%. Labs were obtained showing a mild leukocytosis at 10.15. Hemoglobin is good at 15.6. Hematocrit good at 47.3. She is macrocytic. Platelets are low at 106 7000. Neutrophils are elevated at 81.5%. Sodium is on the low end of normal at 138. Potassium is just slightly low at 3.4. Chloride 99. Carbon oxide 28. Anion gap is good at 14.4. BUN is high at 19. Creatinine high at 1.3. GFR is low at 39. Glucose is high at 127. Calcium 9.0. Bilirubin 0.8. AST is 14, ALT 22, alkaline phosphatase 99. Albumin is low at 3.1. Abdominal x-ray is obtained and interpreted by Dr. Vo as "1. Mild increased gas within small bowel and colon. This does not appear to be obstructive and may represent excessive swallowed air or mild ileus. 2. Other findings believed to be incidental as described above." Abdominal CT is been obtained and interpreted by Dr. Vo as "1. Findings which are felt compatible with mild diverticulosis within the descending colon near the junction of the sigmoid colon. 2. Other findings as noted above which are felt to be nonacute and incidental. " She was given a 1 L fluid bolus and started on 2 g IV ceftriaxone and 500 mg metronidazole. She is also given 4 mg IV push Zofran and 0.25 mg Dilaudid for pain. She carries a history of glaucoma, A. fib, CAD, HLD, hypertension, palpitations , lung nodule, diverticulosis, hemorrhoids, hepatitis, hiatal hernia, diarrhea, hepatomegaly, esophagitis, duodenitis, Guzman's esophagus, diverticulitis, diverticulosis, ovarian tumor, bladder cancer. She is a daily smoker. She is a DNR/DNI. Her PCP is Dr. Chinchilla. She is subsequently admitted to the medical floor on telemetry for management of her diverticulitis and hypokalemia. Diagnosis: Stroke: No - Discharge Data Discharge Date: 12/20/19 Discharge Disposition: Home, Self-Care 01 Condition: Good - Referral to Home Health Primary Care Physician: Jaden Quintana MD - Discharge Diagnosis/Problem(s) (1) C. difficile diarrhea SNOMED Code(s): 6864805790100 ICD Code: A04.72 - ENTEROCOLITIS D/T CLOSTRIDIUM DIFFICILE, NOT SPCF RECUR Status: Acute Current Visit: Yes - Patient Summary/Data Consults: Consultations 12/18/19 12:01 OT Evaluation and Treatment [CONS] Routine PT Evaluation and Treatment [CONS] Routine Hospital Course: Patient was admitted and initially started on ceftriaxone and IV Flagyl for her diverticulitis. Stools were sent for C. difficile because of her watery diarrhea on admission. It was positive for C. difficile and she was started on vancomycin. She did have some improvement in her diarrhea during hospitalization and a significant improvement in her left lower quadrant pain. She stated on the day of discharge that she slept last night for the first time without pain in a long time. She did continue to have loose stools, 2 on the day of discharge, but again with improvement. Patient has a history of an allergy to gatifloxacin so she was not placed on a fluoroquinolone on discharge. Also because of the common side effect of diarrhea on Augmentin I elected not to discharge her on Augmentin either. Patient was discharged on Bactrim 1 tab double strength to finish 7 more days, metronidazole 500 mg every 8 hours for 10 more days, and vancomycin 125 mg 4 times daily for 10 days. At time of discharge patient was able to tolerate a regular diet, had a normal white count, and symptomatically improved. During hospitalization we did have to replace her potassium several times and she will be discharged on potassium. - Patient Instructions Diet: Usual Diet as Tolerated Driving: May Drive Today Showering/Bathing: May Shower Other/Special Instructions: Finish all antibiotics. Sulfamethoxazole/ trimethoprim 1 tablet twice a day for 7 days. Metronidazole 500 mg 1 tablet every 8 hours for 10 days. Vancomycin 125 mg 1 tablet 4 times a day for 10 days. Follow-up with your primary care provider in 1 week. If pain worsens or diarrhea worsens return to the emergency room. - Discharge Plan *PRESCRIPTION DRUG MONITORING PROGRAM REVIEWED*: No *COPY OF PRESCRIPTION DRUG MONITORING REPORT IN PATIENT RADHA: No Prescriptions/Med Rec: metroNIDAZOLE [Metronidazole] 500 mg PO Q8H #30 tablet Potassium Chloride 20 meq PO DAILY #30 tablet.er Sulfamethoxazole/Trimethoprim [Bactrim Ds Tablet] 1 each PO BID #14 tablet Vancomycin 125 mg PO QID #40 cap Home Medications: Home Meds Latanoprost [Xalatan 0.005% Ophth Soln] 1 drop EYEBOTH BEDTIME 11/15/16 [History ] Pravastatin [Pravachol] 20 mg PO DAILY 10/16/18 [History] amLODIPine Besylate [Norvasc] 2.5 mg PO DAILY 10/16/18 [History] Esomeprazole Magnesium [Nexium] 40 mg PO DAILY 12/17/19 [History] Metoprolol Tartrate [Lopressor] 150 mg PO DAILY 12/17/19 [History] Nortriptyline 10 mg PO BEDTIME 12/17/19 [History] Rivaroxaban [Xarelto] 2.5 mg PO DAILY 12/17/19 [History] Sucralfate [Carafate] 1 gm PO QID 12/17/19 [History] Telmisartan [Micardis] 80 mg PO DAILY 12/17/19 [History] Potassium Chloride 20 meq PO DAILY #30 tablet.er 12/20/19 [Rx] Sulfamethoxazole/Trimethoprim [Bactrim Ds Tablet] 1 each PO BID #14 tablet 12/20 [Rx] Vancomycin 125 mg PO QID #40 cap 12/20/19 [Rx] metroNIDAZOLE [Metronidazole] 500 mg PO Q8H #30 tablet 12/20/19 [Rx] Patient Handouts: Diverticulitis, [id number], Rivaroxaban oral tablets, Clostridium Difficile Infection, [id number], Steps to Quit Smoking Referrals: Jaden Quintana MD [Primary Care Provider] - - Discharge Summary/Plan Comment DC Time >30 min.: Yes Discharge Summary/Plan Comment: Follow-up with primary care provider in 1 week. Finish all antibiotics. If symptoms worsen follow-up with your primary care provider earlier or return to the emergency room. - General Info Date of Service: 12/20/19 Admission Dx/Problem (Free Text: Admission Diagnosis/Problem Admission Diagnosis/Problem Diverticulitis Subjective Update: Patient states she is doing much better, is fever free, and able to tolerate a regular diet. She had a good night without pain. Functional Status: Reports: Pain Controlled - Review of Systems General: Reports: No Symptoms HEENT: Reports: No Symptoms Pulmonary: Reports: No Symptoms Cardiovascular: Reports: No Symptoms Gastrointestinal: Reports: Diarrhea Musculoskeletal: Reports: No Symptoms - Patient Data Vitals - Most Recent: Last Vital Signs Temp 97.5 F 12/20/19 12:20 Pulse 68 12/20/19 12:20 Resp 20 12/20/19 12:20 BP 128/91 H 12/20/19 12:20 Pulse Ox 96 12/20/19 12:20 Weight - Most Recent: 177 lb 14.4 oz I&O - Last 24 hours: Intake & Output 12/19/19 12/20/19 12/20/19 22:59 06:59 14:59 Intake Total 1310 800 240 Output Total 900 1000 Balance 410 -200 240 Lab Results - Last 24 hrs: Laboratory Results - last 24 hr 12/20/19 12/20/19 Range/Units 04:20 04:20 WBC 4.42 (3.98-10.04) K/mm3 RBC 4.31 (3.98-5.22) M/mm3 Hgb 13.6 (11.2-15.7) gm/dl Hct 41.7 (34.1-44.9) % MCV 96.8 H (79.4-94.8) fl MCH 31.6 (25.6-32.2) pg MCHC 32.6 (32.2-35.5) g/dl RDW Std Deviation 46.5 H (36.4-46.3) fL Plt Count 155 L (182-369) K/mm3 MPV 10.6 (9.4-12.3) fl Neut % (Auto) 53.4 (34.0-71.1) % Lymph % (Auto) 31.2 (19.3-51.7) % [place] % (Auto) 11.5 (4.7-12.5) % Eos % (Auto) 2.9 (0.7-5.8) Baso % (Auto) 0.5 (0.1-1.2) % Neut # (Auto) 2.36 (1.56-6.13) K/mm3 Lymph # (Auto) 1.38 (1.18-3.74) K/mm3 [place] # (Auto) 0.51 H (0.24-0.36) K/mm3 Eos # (Auto) 0.13 (0.04-0.36) K/mm3 Baso # (Auto) 0.02 (0.01-0.08) K/mm3 Sodium 140 (136-145) mEq/L Potassium 3.7 (3.5-5.1) mEq/L Chloride 105 (98-107) mEq/L Carbon Dioxide 28 (21-32) mEq/L Anion Gap 10.7 (5-15) BUN 11 (7-18) mg/dL Creatinine 0.8 (0.55-1.02) mg/dL Est Cr Clr Drug Dosing 51.63 mL/min Estimated GFR (MDRD) > 60 (>60) mL/min BUN/Creatinine Ratio 13.8 L (14-18) Glucose 97 (83-115) mg/dL Calcium 8.8 (8.5-10.1) mg/dL Magnesium 1.8 (1.8-2.4) mg/dl Total Bilirubin 0.3 (0.2-1.0) mg/dL AST 19 (15-37) U/L ALT 23 (14-59) U/L Alkaline Phosphatase 82 (46-116) U/L Total Protein 6.3 L (6.4-8.2) g/dl Albumin 2.7 L (3.4-5.0) g/dl Globulin 3.6 gm/dL Albumin/Globulin Ratio 0.8 L (1-2) Med Orders - Current: Current Medications Acetaminophen (Tylenol) 650 mg PO Q4H PRN PRN Reason: Pain (Mild 1-3)/fever Hydrocodone Bitart/Acetaminophen ([place] 325-5 Mg) 1 tab PO Q4H PRN PRN Reason: Pain (moderate 4-6) Last Admin: 12/19/19 21:01 Dose: 1 tab Amlodipine Besylate (Norvasc) 2.5 mg PO DAILY [facility] Last Admin: 12/20/19 08:25 Dose: 2.5 mg Ceftriaxone Sodium 2 gm/ (Sodium Chloride) 100 mls @ 200 mls/hr IV Q24H [facility] Last Admin: 12/19/19 21:00 Dose: 200 mls/hr Metronidazole 500 mg/ Premix 100 mls @ 100 mls/hr IV Q8H [facility] Last Admin: 12/20/19 13:17 Dose: 100 mls/hr Latanoprost (Xalatan 0.005% Ophth Soln) 0 ml EYEBOTH BEDTIME [facility] Last Admin: 12/19/19 21:01 Dose: 1 drop Melatonin (Melatonin) 9 mg PO BEDTIME PRN PRN Reason: Insomnia Metoprolol Tartrate (Lopressor) 150 mg PO DAILY [facility] Last Admin: 12/20/19 08:25 Dose: 150 mg Miscellaneous Information (Remove Patch) 0 ea TRDERM DAILY [facility] Last Admin: 12/20/19 08:27 Dose: Not Given Nicotine (Habitrol) 14 mg TRDERM DAILY [facility] Last Admin: 12/20/19 08:27 Dose: Not Given Nortriptyline HCl (Nortriptyline) 10 mg PO BEDTIME [facility] Last Admin: 12/19/19 21:01 Dose: 10 mg Ondansetron HCl (Zofran) 4 mg IV Q4H PRN PRN Reason: Nausea/Vomiting Pantoprazole Sodium (Protonix) 40 mg PO DAILY [facility] Last Admin: 12/20/19 08:25 Dose: 40 mg Rivaroxaban [Xarelto (] 2.5 Mg) 0 each PO DAILY@1400 [facility] Last Admin: 12/19/19 13:35 Dose: 1 each Sodium Chloride (Saline Flush) 10 ml FLUSH ASDIRECTED PRN PRN Reason: Keep Vein Open Last Admin: 12/17/19 18:22 Dose: 10 ml Sucralfate (Carafate) 1 gm PO QID [facility] Last Admin: 12/20/19 12:17 Dose: 1 gm Vancomycin HCl (Vancomycin) 125 mg PO QID [facility] Stop: 12/28/19 17:01 Last Admin: 12/20/19 12:17 Dose: 125 mg Discontinued Medications Diatrizoate Meglum/Diatrizoate Sod (Gastrografin 37%) 120 ml PO ONETIME ONE Stop: 12/17/19 20:04 Last Admin: 12/17/19 20:44 Dose: 90 ml Enoxaparin Sodium (Lovenox) 30 mg SUBCUT Q24H [facility] Last Admin: 12/19/19 09:05 Dose: 30 mg Hydromorphone HCl (Dilaudid) 0.25 mg IVPUSH ONETIME ONE Stop: 12/17/19 17:20 Last Admin: 12/17/19 18:21 Dose: 0.25 mg Sodium Chloride (Normal Saline) 1,000 mls @ 999 mls/hr IV ONETIME [facility] Last Admin: 12/17/19 18:22 Dose: 999 mls/hr Sodium Chloride (Normal Saline) 100 mls @ 75 mls/hr IV ASDIRECTED [facility] Last Admin: 12/17/19 20:44 Dose: 75 mls/hr Ceftriaxone Sodium 2 gm/ (Sodium Chloride) 100 mls @ 200 mls/hr IV ONETIME ONE Stop: 12/17/19 22:03 Last Admin: 12/17/19 22:53 Dose: Not Given Metronidazole 500 mg/ Premix 100 mls @ 100 mls/hr IV ONETIME ONE Stop: 12/17/19 22:33 Last Admin: 12/17/19 22:18 Dose: 100 mls/hr Ceftriaxone Sodium 2 gm/ (Sodium Chloride) 100 mls @ 200 mls/hr IV STAT [facility] Stop: 12/17/19 22:41 Last Admin: 12/17/19 22:19 Dose: 200 mls/hr Potassium Chloride 10 meq/ (Premix) 100 mls @ 100 mls/hr IV Q1H [facility] Stop: 12/18/19 12:59 Last Admin: 12/18/19 14:18 Dose: 100 mls/hr Sodium Chloride (Normal Saline) 1,000 mls @ 50 mls/hr IV ASDIRECTED [facility] Last Admin: 12/18/19 10:56 Dose: 50 mls/hr Potassium Chloride 10 meq/ (Premix) 100 mls @ 100 mls/hr IV Q1H [facility] Stop: 12/19/19 10:59 Last Admin: 12/19/19 10:43 Dose: 100 mls/hr Magnesium Sulfate 2 gm/ Premix 50 mls @ 25 mls/hr IV Q1H [facility] Stop: 12/19/19 09:44 Last Admin: 12/19/19 09:00 Dose: 25 mls/hr Iopamidol (Isovue-300 (61%)) 100 ml IVPUSH ONETIME ONE Stop: 12/17/19 20:04 Last Admin: 12/17/19 20:44 Dose: 65 ml Losartan Potassium (Cozaar) 100 mg PO DAILY [facility] Last Admin: 12/18/19 08:12 Dose: 100 mg Ondansetron HCl (Zofran Odt) 4 mg PO ONETIME ONE Stop: 12/17/19 14:33 Last Admin: 12/17/19 15:21 Dose: Not Given Ondansetron HCl (Zofran) 4 mg IVPUSH ONETIME ONE Stop: 12/17/19 17:19 Last Admin: 12/17/19 18:23 Dose: 4 mg Potassium Chloride (Klor-Con M20) 40 meq PO ONETIME ONE Stop: 12/18/19 08:31 Last Admin: 12/18/19 08:11 Dose: 40 meq Sodium Chloride (Saline Flush) 10 ml FLUSH ONETIME PRN PRN Reason: IV FLUSH Last Admin: 12/17/19 20:44 Dose: 10 ml - Exam General: Reports: Alert, Oriented HEENT: Reports: Pupils Equal, Mucous Membr. Moist/[place] Neck: Reports: Supple Lungs: Reports: Clear to Auscultation, Normal Respiratory Effort Cardiovascular: Reports: Regular Rate, Regular Rhythm GI/Abdominal Exam: Normal Bowel Sounds, Soft, No Organomegaly, No Distention, Tender (Left lower quadrant tenderness without guarding or rebound. Much improved.) Back Exam: Reports: Normal Inspection Extremities: Normal Inspection, Normal Range of Motion, Non-Tender, No Pedal Edema, Normal Capillary Refill Skin: Reports: Warm, Dry, Intact Psy/Mental Status: Reports: Alert, Normal Affect, Normal Mood
[2019-12-20] MEDS: RIVAROXABAN 2.5 MG PO SCH (15:05)
== END 2019-12-20 14:45 | disposition home or self-care (01) | DRG 372 ==
LOC: JD.ED 13:51 → JD.MS 22:01
PROVIDERS: ADMIT Family Medicine; ATTEND Family Medicine
DX: K57.92 Diverticulitis of intestine, part unspecified, without perforation or abscess without bleeding (principal); R19.7 Diarrhea, unspecified; A04.72 Enterocolitis due to Clostridium difficile, not specified as recurrent; H54.7 Unspecified visual loss; I48.19 Other persistent atrial fibrillation; H40.9 Unspecified glaucoma; I48.91 Unspecified atrial fibrillation; I25.10 Atherosclerotic heart disease of native coronary artery without angina pectoris; I10 Essential (primary) hypertension; Z66 Do not resuscitate; K44.9 Diaphragmatic hernia without obstruction or gangrene; F17.200 Nicotine dependence, unspecified, uncomplicated; R16.0 Hepatomegaly, not elsewhere classified; Z79.01 Long term (current) use of anticoagulants; Z79.82 Long term (current) use of aspirin; E78.00 Pure hypercholesterolemia, unspecified; E87.6 Hypokalemia; E78.5 Hyperlipidemia, unspecified; F17.210 Nicotine dependence, cigarettes, uncomplicated; K22.719 Barrett's esophagus with dysplasia, unspecified; Z79.899 Other long term (current) drug therapy; Z85.51 Personal history of malignant neoplasm of bladder; Z88.1 Allergy status to other antibiotic agents; Z88.8 Allergy status to other drugs, medicaments and biological substances; Z86.19 Personal history of other infectious and parasitic diseases; Z90.49 Acquired absence of other specified parts of digestive tract; Z90.710 Acquired absence of both cervix and uterus; Z98.51 Tubal ligation status
CPT/HCPCS: 36415; 74019; 74177; 80053; 85025; J1170; J2405; J7030; J7050; Q9963; Q9967; 83735; 84132; 87324; 87493; 96361; 96374; 96375; 97161-GP; 97165-GO; 99222; 99231; 99239; 99284; 99285-25; A9270-GY; J0696; J1650; J3475; J3480; J3490

== ENCOUNTER 2022-08-09 16:15 | Emergency (ER) | payer MEDICARE, OTHER ==
[2022-08-09] MEDS ORDERED: Sucralfate Suspension 1 GM/10 ML Cup ONE (17:36)
[2022-08-09] MEDS ORDERED: fentaNYL 100 MCG/2 ML SDV IVPUSH ONE (17:55)
[2022-08-09 18:47] VITALS: BP 102/77; PULSE 98
[2022-08-09] MEDS ORDERED: Sucralfate Suspension 1 GM/10 ML Cup PO SCH (22:00)
== END 2022-08-09 18:55 | disposition home or self-care (01) ==
LOC: JD.ED 16:15 → SUPCPDRO 16:15 → JD.ED 18:55
DX: S72.142A Displaced intertrochanteric fracture of left femur, initial encounter for closed fracture (principal); I25.10 Atherosclerotic heart disease of native coronary artery without angina pectoris; R09.02 Hypoxemia; E78.00 Pure hypercholesterolemia, unspecified; I10 Essential (primary) hypertension; Z88.1 Allergy status to other antibiotic agents; Z88.6 Allergy status to analgesic agent; Z79.899 Other long term (current) drug therapy; Z90.49 Acquired absence of other specified parts of digestive tract; Z90.710 Acquired absence of both cervix and uterus; Z20.822 Contact with and (suspected) exposure to COVID-19; W01.0XXA Fall on same level from slipping, tripping and stumbling without subsequent striking against object, initial encounter
CPT/HCPCS: 36415; 71045; 71045-26; 73502-26-LT; 73502-LT; 80053; 85025; 85610; 96374; 99284; 99285-25; A9270-GY; J3010; U0002

== ENCOUNTER 2024-11-20 15:20 | Emergency (ER) | payer MEDICARE, OTHER ==
[2024-11-20] MEDS ORDERED: Sodium Chloride 0.9% 10 ML Syringe FLUSH PRN (15:55)
[2024-11-20 16:19] LABS: BASOPHILS PERCENT AUTO 0.2 % (0.0-1.0); EOSINOPHILS ABSOLUTE AUTO 0.1 K/mm3 (0.0-0.4); EOSINOPHILS PERCENT AUTO 2.7 % (0.0-6.0); HEMATOCRIT 40.3 % (37.0-47.0); HEMOGLOBIN 13.6 gm/dl (12.0-16.0); IMMATURE GRAN ABSOLUTE AUTO 0.01 K/mm3 (0.00-0.05); IMMATURE GRAN PERCENT AUTO 0.2 % (0.0-0.4); LYMPHOCYTES ABSOLUTE AUTO 0.6 K/mm3 (1.0-4.8); LYMPHOCYTES PERCENT AUTO 14.6 % (24.0-44.0); MEAN CORPUSCULAR HEMOGLOBIN 32.3 pg (28.0-32.0); MEAN CORPUSCULAR HGB CONC 33.7 g/dl (32.0-36.0); MEAN CORPUSCULAR VOLUME 95.7 fl (83.0-99.0); MEAN PLATELET VOLUME 10.8 fl (9.4-12.3); MONOCYTES ABSOLUTE AUTO 0.5 K/mm3 (0.0-0.8); MONOCYTES PERCENT AUTO 11.7 % (0.0-8.0); NEUTROPHILS ABSOLUTE AUTO 2.9 K/mm3 (1.8-7.7); NEUTROPHILS PERCENT AUTO 70.6 % (41.0-71.0); PLATELET COUNT,PLT 121 K/mm3 (150-400); RED BLOOD CELL COUNT 4.21 M/mm3 (4.10-5.30); WHITE BLOOD CELL COUNT,WBC 4.12 K/mm3 (3.9-11.3)
[2024-11-20 16:47] LABS: A/G RATIO 0.9 (1-2); ALBUMIN 3.2 g/dl (3.4-5.0); ANION GAP 13.8 (5-15); BILIRUBIN TOTAL 0.5 mg/dL (0.2-1.0); C-REACTIVE PROTEIN 3.82 mg/dL (<0.30); CALCIUM 8.8 mg/dL (8.5-10.1); EST CRCL DRUG DOSING (CG) 40.74 mL/min; MAGNESIUM 1.8 mg/dL (1.8-2.4); POTASSIUM,K 3.8 mEq/L (3.5-5.1); PROTEIN TOTAL,TP 6.8 g/dl (6.4-8.2); TSH 1.621 uIU/mL (0.358-3.74)
[2024-11-20] MEDS: Sodium Chloride 0.9% 1,000 ML IV SCH (16:49)
[2024-11-20 17:46] LABS: APPEARANCE,URINE CLEAR (Clear); BILIRUBIN,URINE NEGATIVE (Negative); COLOR,URINE YELLOW (Yellow); GLUCOSE,URINE NEGATIVE (Negative); KETONES,URINE NEGATIVE (Negative); LEUKOCYTE ESTERASE,URINE NEGATIVE (Negative); NITRITE,URINE NEGATIVE (Negative); OCCULT BLOOD,URINE TRACE-INTACT (Negative); PROTEIN,URINE 1+ (Negative); UROBILINOGEN,URINE 0.2 (0.2-1.0)
[2024-11-20 18:31] VITALS: BP 159/97; PULSE 84
[2024-11-20 18:35] LABS: BACTERIA,URINE FEW /hpf (FEW); RBC,URINE 0-5 /hpf (0-5); SQUAMOUS EPITHELIAL CELLS,UR 0-5 /hpf (0-5); WBC,URINE 0-5 /hpf (0-5)
[2024-11-20 18:36] LABS: HYALINE CASTS,URINE 0-5 /lpf (0-5); MUCUS,URINE NOT SEEN /hpf (FEW)
[2024-11-20] MEDS: Doxycycline Monohydrate 100 MG Cap PO ONE (19:21)
[2024-11-20] MEDS: Acetaminophen/HYDROcodone 325-5 MG Tab PO ONE (19:24)
== END 2024-11-20 19:36 | disposition home or self-care (01) ==
LOC: JD.ED 15:20
DX: J18.9 Pneumonia, unspecified organism (principal); R42 Dizziness and giddiness; R29.6 Repeated falls; I10 Essential (primary) hypertension; I25.10 Atherosclerotic heart disease of native coronary artery without angina pectoris; I48.91 Unspecified atrial fibrillation; F17.210 Nicotine dependence, cigarettes, uncomplicated; Z90.49 Acquired absence of other specified parts of digestive tract; Z90.710 Acquired absence of both cervix and uterus; Z79.899 Other long term (current) drug therapy; Z79.01 Long term (current) use of anticoagulants; Z88.8 Allergy status to other drugs, medicaments and biological substances
CPT/HCPCS: 36415; 70450; 71045; 72192; 73502; 80053; 81001; 83605; 83735; 83880; 84443; 84484; 85025; 86140; 87428; 93005; 96360; 96361; 99285; A9270; J7030; 93010; 99284

== ENCOUNTER 2024-12-15 17:25 | Emergency (ER) | payer MEDICARE, OTHER ==
[2024-12-15 18:42] VITALS: BP 133/75; PULSE 107
[2024-12-15] MEDS ORDERED: Naloxone 0.4 MG/ML SDV IVPUSH PRN (19:33)
[2024-12-15] MEDS ORDERED: fentaNYL 100 MCG/2 ML SDV IVPUSH ONE (19:33)
[2024-12-15] MEDS ORDERED: Ondansetron 4 MG/2 ML SDV IVPUSH ONE (19:33)
[2024-12-15] MEDS ORDERED: Sodium Chloride 0.9% 100 ML IV SCH (19:45)
[2024-12-15] MEDS: Acetaminophen 325 MG Tab PO ONE (19:48)
[2024-12-15] MEDS: Ondansetron 4 MG Tab.DIS PO ONE (19:48)
[2024-12-15] MEDS: oxyCODONE 5 MG Tab PO ONE (19:48)
[2024-12-18 07:47] LABS: CA 19-9 164 U/mL (<=35)
== END 2024-12-15 20:44 ==
LOC: JD.ED 17:25
DX: C25.9 Malignant neoplasm of pancreas, unspecified (principal); G89.3 Neoplasm related pain (acute) (chronic); R05.9 Cough, unspecified; I48.91 Unspecified atrial fibrillation; I25.10 Atherosclerotic heart disease of native coronary artery without angina pectoris; I10 Essential (primary) hypertension; Z86.73 Personal history of transient ischemic attack (TIA), and cerebral infarction without residual deficits; Z90.49 Acquired absence of other specified parts of digestive tract; Z90.710 Acquired absence of both cervix and uterus; Z88.8 Allergy status to other drugs, medicaments and biological substances; Z79.01 Long term (current) use of anticoagulants; Z79.899 Other long term (current) drug therapy
CPT/HCPCS: 82378; 86301; 87428; 99284; A9270